=== PATIENT | male | born 1965 | race Caucasian/White ===

== ENCOUNTER 2018-12-09 10:15 | Inpatient (IN) ==
[2018-12-09] MEDS ORDERED: SODIUM CHLORIDE 0.9% 1,000 ML IV STA (10:33)
[2018-12-09] MEDS ORDERED: ONDANSETRON 4 MG/2 ML VIAL IV STA (10:33)
[2018-12-09 10:51] LABS: Basophils # 0.1 10*3/uL (0.0-0.2); Basophils % 0.6 % (0.0-0.8); Eosinophils % 0.1 % (0.00-10.9); Hematocrit 50.3 VOL% (42.0-52.0); Hemoglobin 16.9 GM/DL (14.0-18.0); Immature Granulocytes % 0.2 %; Immature Granulocytes Absolute 0.02 #; Lymphocytes # 1.7 10*3/uL (1.4-4.0); Mean Corpuscular HGB Conc 33.6 GM/DL (32-36); Mean Corpuscular Hemoglobin 29 PG (27-34); Mean Platelet Volume 10.4 FL (9.6-12.0); Monocytes # 1.4 10*3/uL (0.11-0.8); Monocytes % 16.2 % (1.7-12.7); Neutrophils # 5.2 10*3/uL (1.4-7.4); Neutrophils % 62.9 % (38.7-73.9); Platelet Count 218 T/CUMM (130-400); Red Blood Count 5.85 MC/CUMM (3.8-5.5); White Blood Count 8.3 T/CUMM (4-12)
[2018-12-09 11:09] LABS: Albumin 3.9 G/DL (3.4-5.0); Bilirubin,Total 0.7 MG/DL (0.2-1.0); Osmolality,Calculated 268.2 MOS/KG (273-304); Potassium 3.3 MMOL/L (3.5-5.1); Total Protein 7.9 G/DL (6.4-8.3)
[2018-12-09 11:11] LABS: Band Neutrophils 2 % (0-10); Lymphocytes 19 % (20-55); Segmented Neutrophils 65 % (50-85); Total Cells Counted 100
[2018-12-09 11:12] LABS: Hypochromasia 1+; Platelet Estimate Adequate
[2018-12-09] MEDS ORDERED: metroNIDAZOLE INJ 500 MG in PREMIX 1 EACH IV STA (11:33)
[2018-12-09] MEDS ORDERED: ACETAMINOPHEN 325 MG TABLET PO PRN (11:39)
[2018-12-09] MEDS ORDERED: PIPERACILLIN/TAZOBACTAM 3,375 MG in SODIUM CHLORIDE 0.9% 100 ML IV STA (11:44)
[2018-12-09] MEDS ORDERED: POTASSIUM CHLORIDE 20 MEQ TABLET PO ONE (11:45)
[2018-12-09 13:18] LABS: Apearance,Urine CLEAR (Clear); Barbiturates Screen,Urine Negative (Negative); Benzodiazepines Screen,Urine Positive (Negative); Bilirubin,Urine Negative (Negative); Blood, Urine Moderate mg/dL (Negative); Cannabinoid Screen,Urine Positive (Negative); Glucose,Urine (UA) Negative (Negative); Ketones,Urine Negative (Negative); Mucus,Urine Moderate /LPF (Occasional); Nitrite,Urine Negative (Negative); Opiate Screen,Urine Positive (Negative); Phencyclidine Screen,Urine Negative (Negative); Protein,Urine Negative; RBC,Urine 5 /HPF (0-4); Squamous Epithelial Cell,Urine Occasional /HPF (0-10); Urine Color Yellow (Yellow); Urine Specific Gravity 1.054 (1.001-1.035); Urine Urobilinogen < 2.0 EU/DL (0.2-1.0); WBC,Urine 1 /HPF (0-6)
[2018-12-09] MEDS: SODIUM CHLORIDE 0.9% 1,000 ML IV SCH (13:49)
[2018-12-09] MEDS: KETOROLAC 15 MG/1 ML VIAL IV PRN (14:33)
[2018-12-09] MEDS: ONDANSETRON 4 MG/2 ML VIAL IV PRN (14:35)
[2018-12-09] MEDS: PIPERACILLIN/TAZOBACTAM 3,375 MG in SODIUM CHLORIDE 0.9% 100 ML IV SCH (20:21)
[2018-12-09] MEDS: MESALAMINE 250 MG CAPSULE PO SCH (20:22)
[2018-12-09] MEDS: QUEtiapine 100 MG TABLET PO SCH (20:22)
[2018-12-09] MEDS: ALPRAZolam 0.5 MG TABLET PO SCH (20:23)
[2018-12-09 20:39] LABS: Hepatitis A Ab IgM Quant 0.28 Index; Hepatitis A Ab IgM Result Negative (Negative); Hepatitis B Core IgM Quant 0.13 Index; Hepatitis B Core IgM Result Negative (Negative); Hepatitis B Surface Ag Quant < 0.10 Index; Hepatitis B Surface Ag Result Negative (Negative); Hepatitis C Virus Ab Quant 0.06 Index; Hepatitis C Virus Ab Result Negative (Negative)
[2018-12-10] MEDS: SODIUM CHLORIDE 0.9% 1,000 ML IV SCH ×3 (01:15→17:15)
[2018-12-10] MEDS: KETOROLAC 15 MG/1 ML VIAL IV PRN (01:46)
[2018-12-10] MEDS: PIPERACILLIN/TAZOBACTAM 3,375 MG in SODIUM CHLORIDE 0.9% 100 ML IV SCH ×3 (03:50→20:31)
[2018-12-10] MEDS: ONDANSETRON 4 MG/2 ML VIAL IV PRN ×2 (04:32→17:26)
[2018-12-10 04:48] LABS: Basophils % 0.3 % (0.0-0.8); Eosinophils % 0.6 % (0.00-10.9); Hematocrit 44.9 VOL% (42.0-52.0); Immature Granulocytes % 0.3 %; Immature Granulocytes Absolute 0.02 #; Lymphocytes # 1.4 10*3/uL (1.4-4.0); Mean Corpuscular Hemoglobin 29 PG (27-34); Mean Corpuscular Volume 86.5 FL (87-102); Mean Platelet Volume 10.7 FL (9.6-12.0); Monocytes # 0.7 10*3/uL (0.11-0.8); Monocytes % 9.9 % (1.7-12.7); Neutrophils % 69.9 % (38.7-73.9); Platelet Count 175 T/CUMM (130-400); Red Blood Count 5.19 MC/CUMM (3.8-5.5); Red Cell Distribution Width 13.2 % (9.3-17.3); White Blood Count 7.1 T/CUMM (4-12)
[2018-12-10 05:10] LABS: Albumin 3.1 G/DL (3.4-5.0); Bilirubin,Total 0.8 MG/DL (0.2-1.0); Calcium 7.8 MG/DL (8.5-10.1); Osmolality,Calculated 277.4 MOS/KG (273-304); Potassium 3.6 MMOL/L (3.5-5.1); Total Protein 6.3 G/DL (6.4-8.3)
[2018-12-10 05:11] LABS: Hemoglobin 14.8 GM/DL (14.0-18.0)
[2018-12-10] MEDS: MESALAMINE 250 MG CAPSULE PO SCH ×4 (10:27→20:34)
[2018-12-10] MEDS: QUEtiapine 100 MG TABLET PO SCH ×2 (10:27→20:32)
[2018-12-10] MEDS: ATORVASTATIN 80 MG TABLET PO SCH (10:28)
[2018-12-10] MEDS: PANTOPRAZOLE 40 MG TABLET PO SCH (10:28)
[2018-12-10] MEDS: METOPROLOL SUCCINATE XL 100 MG TABLET PO SCH (10:28)
[2018-12-10] MEDS: BUDESONIDE 3 MG CAPSULE PO SCH (13:25)
[2018-12-10] MEDS: DULoxetine 30 MG CAPSULE PO SCH (17:14)
[2018-12-10] MEDS: ALPRAZolam 0.5 MG TABLET PO SCH (20:32)
[2018-12-10] MEDS ORDERED: MIRTAZAPINE 30 MG TABLET PO SCH (21:00)
[2018-12-11 03:39] LABS: Basophils % 0.4 % (0.0-0.8); Eosinophils % 0.7 % (0.00-10.9); Hematocrit 40.1 VOL% (42.0-52.0); Hemoglobin 13.5 GM/DL (14.0-18.0); Immature Granulocytes % 0.2 %; Immature Granulocytes Absolute 0.01 #; Lymphocytes # 1.7 10*3/uL (1.4-4.0); Lymphocytes % 32.3 % (21.2-54.2); Mean Corpuscular HGB Conc 33.7 GM/DL (32-36); Mean Corpuscular Hemoglobin 29 PG (27-34); Mean Corpuscular Volume 86.6 FL (87-102); Mean Platelet Volume 10.5 FL (9.6-12.0); Monocytes # 0.6 10*3/uL (0.11-0.8); Monocytes % 11.6 % (1.7-12.7); Neutrophils # 2.9 10*3/uL (1.4-7.4); Neutrophils % 54.8 % (38.7-73.9); Platelet Count 179 T/CUMM (130-400); Red Blood Count 4.63 MC/CUMM (3.8-5.5); Red Cell Distribution Width 13.3 % (9.3-17.3); White Blood Count 5.4 T/CUMM (4-12)
[2018-12-11 04:01] LABS: Calcium 7.9 MG/DL (8.5-10.1)
[2018-12-11 04:02] LABS: Potassium 3.5 MMOL/L (3.5-5.1)
[2018-12-11] MEDS: PIPERACILLIN/TAZOBACTAM 3,375 MG in SODIUM CHLORIDE 0.9% 100 ML IV SCH (04:02)
[2018-12-11] MEDS: ONDANSETRON 4 MG/2 ML VIAL IV PRN (05:53)
[2018-12-11 08:47] VITALS: BP 110/71
[2018-12-11] MEDS: METOPROLOL SUCCINATE XL 100 MG TABLET PO SCH (08:48)
[2018-12-11] MEDS: MESALAMINE 250 MG CAPSULE PO SCH (08:48)
[2018-12-11] MEDS: QUEtiapine 100 MG TABLET PO SCH (08:48)
[2018-12-11] MEDS: PANTOPRAZOLE 40 MG TABLET PO SCH (08:48)
[2018-12-11] MEDS: BUDESONIDE 3 MG CAPSULE PO SCH (08:48)
[2018-12-11] MEDS: ATORVASTATIN 80 MG TABLET PO SCH (08:48)
[2018-12-11] MEDS: DULoxetine 30 MG CAPSULE PO SCH ×2 (08:48→08:52)
[2018-12-12 17:46] LABS: TB2 Ag Minus Result -0.01 IU/mL
== END 2018-12-11 10:18 | disposition home or self-care (01) | DRG 387 ==
LOC: N.ED 10:15 → N.EDINP 11:39 → N.4E 12:39
PROVIDERS: ADMIT Internal Medicine; ATTEND Internal Medicine